=== PATIENT | male | born 2000 | race African-American/Black ===

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

== ENCOUNTER 2020-06-13 15:05 | Emergency (ER) | payer BC ==
[2020-06-13] MEDS ORDERED: ONDANSETRON HCL INJ/PF 4 MG/2 ML SDV IV ONE (15:49)
[2020-06-13] MEDS ORDERED: FENTANYL CITRATE INJ/PF 100 MCG/2 ML AMPUL IV ONE (15:49)
--- NOTE | 2020-06-13 15:52 | ER Document Report ---
ED Medical Screen (RME) - General Chief Complaint: Arm Injury Stated Complaint: SHOULDER PAIN Time Seen by Provider: 06/13/20 15:42 Notes: Patient is a 20-year-old male who presents to the emergency department with a chief complaint of right shoulder and right arm pain. Patient was skateboarding and fell off his skateboard onto his wrist right arm/shoulder. Denies hitting his head. Exam: Deformity noted to right shoulder. 2+ radial pulse. I have greeted and performed a rapid initial assessment of this patient. A comprehensive ED assessment and evaluation of the patient, analysis of test results and completion of medical decision making process will be conducted by an additional ED providers. TRAVEL OUTSIDE OF THE [place] IN LAST 30 DAYS: No - Related Data Allergies/Adverse Reactions: No Known Allergies Allergy (Verified 05/23/17 14:54) Home Medications: abilify. topramate. concerta. antidepressant. anxiety Past Medical History - Social History Chew tobacco use (# tins/day): No Frequency of alcohol use: None Drug Abuse: None Renal/ Medical History: Denies: Hx Peritoneal Dialysis Psychiatric Medical History: Reports: Hx Depression Past Surgical History: Reports: Hx Myringotomy - Immunizations Immunizations up to date: Yes Physical Exam - Vital signs Vitals: Temp Pulse Resp BP Pulse Ox 98.1 F 91 16 142/87 H 98 06/13/20 15:19 06/13/20 15:19 06/13/20 15:19 06/13/20 15:19 06/13/20 15:19 Course - Vital Signs Vital signs: Temp Pulse Resp BP Pulse Ox 98.1 F 91 16 142/87 H 98 06/13/20 15:19 06/13/20 15:19 06/13/20 15:19 06/13/20 15:19 06/13/20 15:19
--- NOTE | 2020-06-13 16:33 | RADIOLOGY REPORT (SQ) ---
EXAM DESCRIPTION: ELBOW RIGHT AP/LAT; SHOULDER RIGHT 2 OR MORE VIEWS; FOREARM RIGHT; HAND RIGHT 3 EWS IMAGES COMPLETED DATE/TIME: 06/13/2020 4:23 pm REASON FOR STUDY: fall off skateboard COMPARISON: None. FINDINGS: Three views right shoulder: ANTERIOR DISLOCATION. No evidence of fracture. Two views right elbow: Normal. Two views right forearm: Normal. Three views right hand: Normal. TECHNICAL DOCUMENTATION: JOB ID: [id number] Reading location - IP/workstation name: [email or web address]
--- NOTE | 2020-06-13 16:33 | RADIOLOGY REPORT (SQ) ---
EXAM DESCRIPTION: ELBOW RIGHT AP/LAT; SHOULDER RIGHT 2 OR MORE VIEWS; FOREARM RIGHT; HAND RIGHT 3 EWS IMAGES COMPLETED DATE/TIME: 06/13/2020 4:23 pm REASON FOR STUDY: fall off skateboard COMPARISON: None. FINDINGS: Three views right shoulder: ANTERIOR DISLOCATION. No evidence of fracture. Two views right elbow: Normal. Two views right forearm: Normal. Three views right hand: Normal. TECHNICAL DOCUMENTATION: JOB ID: [id number] Reading location - IP/workstation name: [email or web address]
--- NOTE | 2020-06-13 16:33 | RADIOLOGY REPORT (SQ) ---
EXAM DESCRIPTION: ELBOW RIGHT AP/LAT; SHOULDER RIGHT 2 OR MORE VIEWS; FOREARM RIGHT; HAND RIGHT 3 EWS IMAGES COMPLETED DATE/TIME: 06/13/2020 4:23 pm REASON FOR STUDY: fall off skateboard COMPARISON: None. FINDINGS: Three views right shoulder: ANTERIOR DISLOCATION. No evidence of fracture. Two views right elbow: Normal. Two views right forearm: Normal. Three views right hand: Normal. TECHNICAL DOCUMENTATION: JOB ID: [id number] Reading location - IP/workstation name: [email or web address]
--- NOTE | 2020-06-13 16:33 | RADIOLOGY REPORT (SQ) ---
EXAM DESCRIPTION: ELBOW RIGHT AP/LAT; SHOULDER RIGHT 2 OR MORE VIEWS; FOREARM RIGHT; HAND RIGHT 3 EWS IMAGES COMPLETED DATE/TIME: 06/13/2020 4:23 pm REASON FOR STUDY: fall off skateboard COMPARISON: None. FINDINGS: Three views right shoulder: ANTERIOR DISLOCATION. No evidence of fracture. Two views right elbow: Normal. Two views right forearm: Normal. Three views right hand: Normal. TECHNICAL DOCUMENTATION: JOB ID: [id number] Reading location - IP/workstation name: [email or web address]
[2020-06-13] MEDS ORDERED: PROPOFOL INJ 200 MG/20 ML VIAL IV ONE (16:46)
--- NOTE | 2020-06-13 17:00 | ER Document Report ---
ED Extremity Problem, Upper - General Chief Complaint: Arm Injury Stated Complaint: SHOULDER PAIN Time Seen by Provider: 06/13/20 15:42 Primary Care Provider: YENY TRAVIS JR, [ACTIVE PROVISIONAL STAFF] - Follow up as needed Notes: This 20-year-old year male presents to the emergency department with a history of a fall while skateboarding today. States that he lost his balance it happened very quickly and he is now complaining of pain in the right upper extremity/shoulder. He was seen in the triage area of the emergency department and x-rays were ordered upfront. He has an anterior dislocation of the right shoulder no other fractures or dislocations are noted in the hand, forearm, humerus. He denies a head injury or loss of consciousness. TRAVEL OUTSIDE OF THE [place] IN LAST 30 DAYS: No - Related Data Allergies/Adverse Reactions: No Known Allergies Allergy (Verified 05/23/17 14:54) Home Medications: abilify. topramate. concerta. antidepressant. anxiety Past Medical History - Social History Smoking Status: Former Smoker Chew tobacco use (# tins/day): No Frequency of alcohol use: None Drug Abuse: None Family History: Reviewed & Not Pertinent Patient has homicidal ideation: No Renal/ Medical History: Denies: Hx Peritoneal Dialysis Psychiatric Medical History: Reports: Hx Depression Past Surgical History: Reports: Hx Myringotomy - Immunizations Immunizations up to date: Yes Review of Systems - Review of Systems Notes: Constitutional: Negative for fever. HENT: Negative for sore throat. Eyes: Negative for visual changes. Cardiovascular: Negative for chest pain. Respiratory: Negative for shortness of breath. Gastrointestinal: Negative for abdominal pain, vomiting or diarrhea. Genitourinary: Negative for dysuria. Musculoskeletal: See HPI Skin: Negative for rash. Neurological: Negative for headaches, weakness or numbness. 10 point ROS negative except as marked above and in HPI. Physical Exam - Vital signs Vitals: Temp Pulse Resp BP Pulse Ox 98.1 F 91 16 142/87 H 98 06/13/20 15:19 06/13/20 15:19 06/13/20 15:19 06/13/20 15:19 06/13/20 15:19 - Notes Notes: PHYSICAL EXAMINATION: Physical Exam: General: Well-nourished well-developed 20-year-old male in no acute distress HEENT: NC/AT, pupils equal round and reactive to light, MM moist,nares clear, oropharynx clear, airway patent Neck: supple, no adenopathy, no masses. Good range of motion Lungs: clear, no wheezing, no rales no rhonchi CVS: Regular rate and rhythm no murmur gallop or rub Abdomen: Soft, active, nontender, no masses, no hepatosplenomegaly Ext: Right shoulder with a step-off at the glenohumeral joint. Neurovascular is intact Neuro: Alert and responsive, moving all 4 extremities on command, cranial nerves intact, no focal findings Skin: Intact no open lesions, no rash PSYCH: Normal mood, normal affect. Course - Vital Signs Vital signs: Temp Pulse Resp BP Pulse Ox 98.1 F 80 21 H 142/80 H 72 L 06/13/20 15:19 06/13/20 18:02 06/13/20 19:17 06/13/20 19:18 06/13/20 19:17 - Laboratory Results Critical Laboratory Results Reviewed: No Critical Results - Radiology Results Radiology Results Interpreted: 06/13/20 16:59 X-ray left shoulder: Anterior dislocation of the shoulder X-ray left hand: No fracture seen X-ray left forearm: No fracture seen no dislocation X-ray left elbow: No dislocation, no fracture 06/13/2020 1900 hrs. X-ray left shoulder: Post reduction x-ray, left shoulder dislocation reduced, no fracture seen. Critical Radiology Results Reviewed: Yes Attending or Supervising Physician who Reviewed Radiology: SEA SMITH Procedures - Conscious Sedation Conscious sedation Time started: 17:40 Time completed: 18:15 Consent obtained: Yes Indication: RT shoulder dislocation Last meal: Breakfast approximately 9:30 AM Normal healthy pt.: P1. - ASA Classification Airway Evaluation: Normal anatomy Mallampati Classification: Class 1 Used during procedure: Suction available, IV access obtained, Pulse ox on pt., monitoring coordinator on pt. Medications administered: Fentanyl - The micrograms, Diprivan - Study milligram I personally performed/intraservice time: Procedure Complications: No - Joint Reduction/Fracture Care Right Shoulder Time completed: 18:10 Consent obtained: Yes Conscious sedation: Yes Pre-procedure NV exam: Yes Manipulation comment: Right arm externally rotated and abducted with reduction of the anterior di Post-procedure NV exam: Yes - Normal neurovascular exam Post-reduction x-ray: Joint reduced Reduction attempts: 1 Complications: No Discharge - Discharge Clinical Impression: Fall from skateboard, initial encounter Anterior dislocation of right shoulder Qualifiers: Encounter type: initial encounter Qualified Code(s): S43.014A - Anterior dislocation of right humerus, initial encounter Condition: Good Disposition: HOME, SELF-CARE Instructions: Shoulder Dislocation ([facility]) Additional Instructions: Your shoulder was dislocated today. This was reduced. Please wear the sling as needed for comfort. Follow-up with orthopedic surgery if you have recurrent shoulder dislocations. You should continue to take anti-inflammatories such as ibuprofen 600 mg every 8 hours for pain. Continue to apply ice to the area is much your able. Please return immediately if you develop weakness, numbness, spreading redness from the area, or any other symptoms that are concerning to you. HOME CARE INSTRUCTIONS & INFORMATION: Thank you for choosing us for your medical needs. We hope you're satisfied with the care you received. After you leave, you must properly care for your problem and, at the same time, observe its progress. Any condition can change. Some illnesses can change rapidly over hours or days. If your condition worsens, return to the Emergency Department or see your physician promptly. ABOUT YOUR X-RAYS AND EKG'S: If you had an EKG or X-rays taken, they have been read by the Emergency Physician. The X-rays and EKG's will also be read by a Radiologist or Strickler Attendant within 24 hours. If discrepancies are noted, you will be notified by telephone. Please be certain the ED has a correct telephone number & address where you can be reached. Also, realize that some fractures or abnormalities do not show up on initial X-rays. If your symptoms continue, see your physician. ABOUT YOUR LABORATORY TEST: If you had laboratory tests, the results have been reviewed by the Emergency Physician. Some test results (for example cultures) may not be available for several days. You will be contacted if any test result shows you need additional treatment. Please be certain the ED has a correct telephone number and address where you can be reached. ABOUT YOUR MEDICATIONS: You will receive instructions on how to take your medicine on the prescription label you receive. Additional information may be provided by the Pharmacy. If you have questions afterwards, call the ED for clarification or further instructions. Some prescribed medications may cause drowsiness. Do not perform tasks such as driving a car or operating machinery without consulting your Pharmacist. If you feel you need a refill of pain medication, your condition will need re-evaluation. Please do not call for a refill of any medication. ABOUT YOUR SIGNATURE: Signature of this document acknowledges to followin. Understanding that you received emergency treatment and that you may be released before al medical problems are known or treated. Please be certain the ED has a correct phone number & address where you can be reached. 2. Acknowledgement that you will arrange for follow-up care as recommended. 3. Authorization for the Emergency Physician to provide information to your follow-up Physician in order to maximize your care. AT ANY TIME, IF YOUR SYMPTOMS CHANGE SIGNIFICANTLY OR WORSEN OR YOU DEVELOP NEW SYMPTOMS, RETURN TO THE EMERGENCY DEPARTMENT IMMEDIATELY FOR RE-EVALUATION. OUR GOAL IS TO PROVIDE EXCELLENT MEDICAL CARE! WE HOPE THAT WE HAVE MET YOUR EXPECTATIONS DURING YOUR EMERGENCY DEPARTMENT VISIT AND THAT YOU FEEL YOU HAVE RECEIVED EXCELLENT CARE! Prescriptions: Ibuprofen [Ibu] 600 mg PO Q8 PRN #30 tablet PRN Reason: For Pain Referrals: YENY TRAVIS JR, DO [ACTIVE PROVISIONAL STAFF] - Follow up as needed
--- NOTE | 2020-06-13 18:06 | RADIOLOGY REPORT (SQ) ---
EXAM DESCRIPTION: SHOULDER RIGHT 2 OR MORE VIEWS IMAGES COMPLETED DATE/TIME: 06/13/2020 5:56 pm REASON FOR STUDY: POST REDUCTION COMPARISON: Films from pre reduction earlier today. FINDINGS: Two views right shoulder, each labeled "Post reduct" . Dislocation has been reduced. No gross fracture. TECHNICAL DOCUMENTATION: JOB ID: [id number] Reading location - IP/workstation name: [email or web address]
[2020-06-13 19:35] VITALS: BP 142/80
== END 2020-06-13 19:45 | disposition home or self-care (01) ==
LOC: ER 15:05
DX: S43.014A Anterior dislocation of right humerus, initial encounter (principal); V00.131A Fall from skateboard, initial encounter; Y93.51 Activity, roller skating (inline) and skateboarding; F32.9 Major depressive disorder, single episode, unspecified; Z79.899 Other long term (current) drug therapy; Z87.891 Personal history of nicotine dependence
CPT/HCPCS: 99284; 99152; 96374; 96375; 73070; 73090; 73130; 73030; 23650; J3010; J2405; J2704